=== PATIENT | male | born 1980 | race Caucasian/White ===

== ENCOUNTER 2017-04-24 22:32 | Emergency (ER) | payer OTHER ==
[2017-04-24 23:07] VITALS: BP 118/70
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
[2017-04-25] MEDS ORDERED: MOTRIN PO ONE (02:48)
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
== END 2017-04-25 05:27 | disposition home or self-care (01) ==
LOC: ED 22:32
DX: S16.1XXA Strain of muscle, fascia and tendon at neck level, initial encounter (principal); S46.912A Strain of unspecified muscle, fascia and tendon at shoulder and upper arm level, left arm, initial encounter; S80.02XA Contusion of left knee, initial encounter; M54.5 Low back pain; G43.909 Migraine, unspecified, not intractable, without status migrainosus; F17.200 Nicotine dependence, unspecified, uncomplicated; F12.10 Cannabis abuse, uncomplicated; V49.59XA Passenger injured in collision with other motor vehicles in traffic accident, initial encounter; Y93.89 Activity, other specified; Y92.89 Other specified places as the place of occurrence of the external cause; Y99.8 Other external cause status
CPT/HCPCS: 72040; 72100